=== PATIENT | male | born 1995 | race Two or more races ===

== ENCOUNTER 2021-09-04 15:22 | Emergency (ER) | payer OTHER ==
[~2021-09-04] VITALS: Ht 175.3 cm; Wt 73.0 kg
--- NOTE | 2021-09-04 15:22 | NUR ---
PT BIB [facility] FROM [facility] C/O BACK PAIN AFTER A SLIP/FALL IN THE BATHROOM. PT IS AAOX4, NOT IN RESPIRATORY DISTRESS, V/S STABLE, KEPT RESTED AND COMFORTABLE. WILL CONTINUE TO MONITOR.
--- NOTE | 2021-09-04 15:46 | NUR ---
PT SEEN AND EXAMINED BY .
[2021-09-04] MEDS ORDERED: KETOROLAC TROMETHAMINE INJ 30 MG/ML VIAL ONE (15:57)
[2021-09-04] MEDS ORDERED: CYCLOBENZAPRINE 10 MG TABLET ONE (15:59)
[2021-09-04] MEDS ORDERED: CYCLOBENZAPRINE 10 MG TABLET PO ONE (16:00)
[2021-09-04] MEDS ORDERED: KETOROLAC TROMETHAMINE INJ 60 MG/2 ML VIAL IM ONE (16:00)
--- NOTE | 2021-09-04 17:00 | NUR ---
PT ABLE TO AMBULATE WITH ASSISTANCE.
[2021-09-04] MEDS ORDERED: HYDROCODONE/APAP 5/325MG TABLET ONE (17:18)
[2021-09-04] MEDS ORDERED: CYCL10TA9 PO (17:23)
[2021-09-04] MEDS ORDERED: NAPR-1192 PO (17:23)
[2021-09-04] MEDS ORDERED: HYDROCODONE/APAP 5/325MG TABLET PO ONE (17:30)
--- NOTE | 2021-09-04 17:44 | NUR ---
PT THROW HIM SELF TO THE GROUND AND ACTING UP. DR. HODGES AWARE.
--- NOTE | 2021-09-04 17:56 | NUR ---
Patient discharged to home in stable condition. Written and verbal after care instructions given. Patient verbalizes understanding of instruction.
[2021-09-04 17:57] VITALS: BP 127/71
== END 2021-09-04 17:57 | disposition home or self-care (01) ==
LOC: ER 15:39
DX: S39.012A Strain of muscle, fascia and tendon of lower back, initial encounter (principal); Z60.2 Problems related to living alone; Z79.1 Long term (current) use of non-steroidal anti-inflammatories (NSAID); Z79.899 Other long term (current) drug therapy; W18.2XXA Fall in (into) shower or empty bathtub, initial encounter; Y93.89 Activity, other specified; Y92.89 Other specified places as the place of occurrence of the external cause; Y99.8 Other external cause status
CPT/HCPCS: 72131; 96372; 99284; J1885